=== PATIENT | female | born 1980 | race Caucasian/White ===

== ENCOUNTER 2017-07-25 14:47 | Emergency (ER) | payer OTHER ==
[~2017-07-25 14:47] MED LIST: ISOVUE-370 76%-LOCM 1 ML ONE
[2017-07-25] MEDS ORDERED: Lorazepam 2 MG/ML VIAL ONE (16:43)
[2017-07-25 17:03] LABS: #Eosinphils 0.1 thou/uL (0.0-0.7); #Lymphocytes 2.4 thou/uL (1.20-3.40); #Monocytes 0.5 thou/uL (0.11-0.59); #Neutrophils 3.1 thou/uL (1.40-6.50); %Basophils 0.6 % (0.0-1.0); %Eosinophils 1.4 % (0.0-10.0); %Lymphocytes 40.1 % (21.0-51.0); %Monocytes 7.4 % (0.0-10.0); Hematocrit 37.3 % (36.0-47.0); Red Blood Cell (RBC) Count 3.96 mill/uL (4.20-5.40); White Blood Cell (WBC) Count 6.1 thou/uL (4.8-10.8)
[2017-07-25 17:10] LABS: PTT 27.3 SEC (22.9-36.1); Prothrombin Time 13.7 SEC (12.0-14.7)
[2017-07-25 17:17] LABS: Lactic Acid - Sepsis 1.6 mmol/L (0.5-2.2)
[2017-07-25 17:20] LABS: Acetaminophen Less than 6.0 mcg/mL (10.0-30.0); Salicylate Less than 8.0 mg/dL (15.0-30.0)
[2017-07-25 17:22] LABS: ALT (SGPT) 13 U/L (8-55); AST (SGOT) 16 U/L (5-34); Alkaline Phosphatase 41 U/L (40-150); Anion Gap 10 mmol/L (10-20); BUN (Urea Nitrogen) 12 mg/dL (7.0-18.7); Bilirubin, Total 0.8 mg/dL (0.2-1.2); CK (CPK) 32 U/L (29-168); Calc. Creatinine Clearance 0 mL/min (70-130); Carbon Dioxide 24 mmol/L (22-29); Chloride 109 mmol/L (98-107); Estimated GFR-MDRD Greater than 90; Globulin 2.7 g/dL (2.4-3.5); Lipase 37 U/L (8-78); Protein, Total 6.7 g/dL (6.0-8.3)
[2017-07-25 17:31] LABS: Bilirubin Negative (Negative); Blood, Urine Negative (Negative); Glucose, Urine (Dipstick) Negative (Negative); Ketone, Urine Negative (Negative); Nitrite Negative (Negative); Protein, Urine (Dipstick) Negative (Neg-Trace)
[2017-07-25 17:44] LABS: Amphetamine Not Detected (NotDetected); Methadone Not Detected (NotDetected); Methamphetamine Not Detected (NotDetected)
--- NOTE | 2017-07-25 20:04 | CT ---
CONTRAST ENHANCED CT IMAGES ABDOMEN AND PELVIS 07/25/17 HISTORY: Abdominal pain. Oral contrast was not given. This does decrease the sensitivity for detection of pathology. Contrast enhanced CT images of the abdomen and pelvis is obtained after administration of IV contrast . The lung bases are unremarkable. No evidence of free intraperitoneal air is seen. The liver and spleen are unremarkable. The gallbladder is within normal limits. No definite evidence of pancreatic abnormality seen. Adrenal glands are unremarkable. The right kidney is unremarkable. T he left kidney contains a 4 mm nonobstructing mid pole left renal calculus. No evidence of periaortic lymphadenopathy is seen. A small amount of free pelvic fluid is seen. No ev idence of small bowel dilatation is seen. Stool is seen in the colon. There is sacroiliac bilateral fusion using transosseous screws. IMPRESSION: 1. Nonobstructing left renal calculus. 2. Small amount of free pelvic fluid. POS: [facility]
== END 2017-07-25 18:55 | disposition home or self-care (01) ==
LOC: ERS 14:47
DX: R10.9 Unspecified abdominal pain (principal)
CPT/HCPCS: 51701; 74177; 80053; 80306; 80307; 81003; 82274; 82550; 83605; 83690; 84146; 84443; 84703; 85025; 85610; 85730; 96361; 96374; A4353; J2060

== ENCOUNTER 2019-05-24 13:07 | Emergency (ER) | payer MEDICAID, SELFPAY ==
[2019-05-24 13:33] LABS: #Basophils 0.1 thou/uL (0.0-0.2); #Eosinphils 0.2 thou/uL (0.0-0.7); #Lymphocytes 2.5 thou/uL (1.20-3.40); #Monocytes 0.5 thou/uL (0.11-0.59); #Neutrophils 5.1 thou/uL (1.40-6.50); %Basophils 0.8 % (0.0-1.0); %Eosinophils 2.3 % (0.0-10.0); %Lymphocytes 29.3 % (21.0-51.0); %Monocytes 6.4 % (0.0-10.0); %Neutrophils 61.2 % (42.0-75.0); Hemoglobin 12.6 g/dL (12.0-16.0); Mean Corpuscular HGB CONC 33.8 g/dL (32.0-36.0); Mean Corpuscular Hemoglobin 31.4 pg (27.0-31.0); Mean Corpuscular Volume 92.8 fL (78.0-98.0); Mean Platelet Volume 6.9 fL (7.4-10.4); Platelet Count 353 thou/uL (130-400); RBC Distribution Width 11.7 % (11.5-14.5); Red Blood Cell (RBC) Count 4.01 mill/uL (4.20-5.40); White Blood Cell (WBC) Count 8.4 thou/uL (4.8-10.8)
[2019-05-24 13:57] LABS: ALT (SGPT) 13 U/L (8-55); AST (SGOT) 15 U/L (5-34); Albumin 4.1 g/dL (3.5-5.0); Alkaline Phosphatase 50 U/L (40-110); Anion Gap 10 mmol/L (10-20); BUN (Urea Nitrogen) 12 mg/dL (7.0-18.7); Bilirubin, Total 0.6 mg/dL (0.2-1.2); Calc. Creatinine Clearance 0 mL/min (70-130); Calcium 9.1 mg/dL (7.8-10.44); Carbon Dioxide 27 mmol/L (22-29); Chloride 105 mmol/L (98-107); Estimated GFR-MDRD 84; Globulin 2.8 g/dL (2.4-3.5); Glucose 104 mg/dL (70-105); Lipase 50 U/L (8-78); Potassium 4.1 mmol/L (3.5-5.1); Protein, Total 6.9 g/dL (6.0-8.3); Sodium 138 mmol/L (136-145)
[2019-05-24] MEDS ORDERED: Ondansetron PF 4 MG/2 ML Vial ONE ×2 (14:17→17:16)
[2019-05-24] MEDS ORDERED: Morphine 4 MG/ML VIAL ONE (14:17)
[2019-05-24 16:47] LABS: Bilirubin Negative (Negative); Blood, Urine 3+ (Negative); Clarity Turbid (Clear); Glucose, Urine (Dipstick) Normal (Negative); Leukocyte Negative Leu/uL (Negative); Nitrite Negative (Negative); Pregnancy Test - Urine (BHCG) Negative (Negative); Pregu Control Background? CLEAR/WHITE (CLR/WHITE); Pregu Control Bar Appear? YES (CONTROL BAR); Protein, Urine (Dipstick) 30 mg/dL (Neg-Trace); RBC/HPF Greater than 50 HPF (0-3); Specific Gravity 1.022 (1.002-1.036); Squamous Epithelial 0-3 HPF (0-3); Urobilinogen Normal mg/dL (Less than 2)
[2019-05-24 16:53] LABS: Bacteria/HPF 1+ HPF (None Seen)
[2019-05-24 16:54] LABS: Yeast-Budding 2+ HPF (None Seen)
[2019-05-24 17:21] LABS: BHCG - Serum Negative (NEGATIVE); Pregs Control Background? CLEAR/WHITE (CLR/WHITE); Pregs Control Bar Appear? YES (CONTROL BAR)
--- NOTE | 2019-05-24 17:29 | CT ---
EXAM: Abdomen and pelvic CT scan with contrast: HISTORY: Abdominal pain COMPARISON: 07/25/2017 FINDINGS: The visualized lung bases are clear. Liver: Unremarkable. Gallbladder:Unremarkable. Pancreas:Unremarkable Spleen:Unremarkable. Adrenal glands:Unremarkable. Kidneys:0.5 cm nonobstructing left renal calculus. No evidence for obstructing calculus. No solid or cystic renal mass. No evidence for bowel obstruction. No CT evidence for acute appendicitis. The urinary bladder is unremarkable. Reproductive system:Unremarkable No abscess, adenopathy, or abnormal fluid collection within the abdomen or pelvis. Internal fixation screws stabilizing both SI joints, stable IMPRESSION: Stable nonobstructing left renal calculus. No other significant acute process.
[2019-05-24] MEDS ORDERED: Metoclopramide HCl 10 MG/2 ML VIAL ONE (17:47)
[2019-05-24] MEDS ORDERED: diphenhydrAMINE 50 MG/ML VIAL ONE (17:47)
== END 2019-05-24 18:15 | disposition home or self-care (01) ==
LOC: ERS 13:07
DX: R10.30 Lower abdominal pain, unspecified (principal); R51 Headache; R11.0 Nausea; F41.9 Anxiety disorder, unspecified
CPT/HCPCS: 36415; 74177; 80053; 81003; 81015; 81025; 83690; 84703; 85025; 96361; 96374; 96375; 96376; J1200; J2270; J2405; J2765